=== PATIENT | female | born 1960 | race Caucasian/White ===

== ENCOUNTER 2019-07-14 10:11 | Emergency (ER) | payer OTHER ==
[~2019-07-14] VITALS: Ht 160 cm; Wt 82.1 kg
[2019-07-14 10:21] VITALS: BP_SYST 120
--- NOTE | 2019-07-14 10:27 | NUR ---
Patient to ER bed 5 to gown for evaluation. Side rails up. Report given to TABITHA Mart.
--- NOTE | 2019-07-14 10:30 | NUR ---
PT CAME TO ER WITH C/O LOWER BACK PAIN 04/01. WAS DIAGNOSED WITH KIDNEY STONES PREVIOUSLY AND PAIN HAS WORSENED
--- NOTE | 2019-07-14 10:45 | NUR ---
ER at bedside examining patient.
--- NOTE | 2019-07-14 11:00 | NUR ---
20 gauge angiocath placed to R AC. Use of asceptic technique. Opsite placed over site. Blood return noted. Blood for lab drawn from site. Flushed with 10 cc of normal saline. No evidence of infiltration noted. Patient tolerated well.
[2019-07-14 11:15] LABS: BILIRUBIN,URINE NEGATIVE (NEGATIVE); BLOOD, URINE 2+ (NEGATIVE); COLOR,URINE YELLOW (YELLOW); GLUCOSE,URINE NEGATIVE (NEGATIVE); KETONES,URINE NEGATIVE (NEGATIVE); LEUKOCYTE ESTERASE ,URINE NEGATIVE (NEGATIVE); NITRITE, URINE NEGATIVE (NEGATIVE); PROTEIN URINE NEGATIVE (NEGATIVE); UROBILINOGEN,URINE 0.2 (0.2-1.0)
[2019-07-14 11:21] LABS: CLARITY/URINE SLIGHTLY HAZY (CLEAR)
[2019-07-14 11:22] LABS: BASOPHILS % (AUTO) 0.6 % (0.0-2.0); EOSINOPHILS # (AUTO) 0.2 K/uL (0.0-0.4); EOSINOPHILS % (AUTO) 2.5 % (0.0-4.0); HEMATOCRIT 40.5 % (36-48); HEMOGLOBIN 13.4 g/dL (12.0-16.0); LYMPHOCYTES # (AUTO) 2.4 K/uL (1.0-5.5); LYMPHOCYTES % (AUTO) 27.7 % (20.5-51.5); MEAN CORPUSCULAR HEMOGLOBIN 29 pg (27-31); MEAN CORPUSCULAR HGB CONC 33 % (32-36); MEAN CORPUSCULAR VOLUME 89 fL (79.0-98.0); MONOCYTES # (AUTO) 0.6 K/uL (0.0-1.0); MONOCYTES % (AUTO) 7.4 % (1.7-9.3); NEUTROPHILS # (AUTO) 5.3 K/uL (1.8-7.7); NEUTROPHILS % (AUTO) 61.8 % (40.0-70.0); PLATELET COUNT (AUTO) 205 K/uL (130-430); RED BLOOD CELL COUNT(AUTO) 4.54 MIL/uL (4.2-6.2); RED CELL DISTRIBUTION WIDTH 14.2 % (9.0-15.0); WHITE BLOOD COUNT (AUTO) 8.6 K/uL (4.8-10.8)
[2019-07-14 11:28] LABS: BACTERIA,URINE FEW /HPF (None Seen); WBC,URINE 0-3 /HPF (0-3)
--- NOTE | 2019-07-14 11:33 | NUR ---
Patient transported to radiology via gurney, accompanied by needle grader.
[2019-07-14 11:43] LABS: CALCIUM 8.2 mg/dL (8.4-11.0); CREATININE 0.61 mg/dL (0.55-1.30); POTASSIUM 4.2 mmol/L (3.5-5.1)
[2019-07-14 11:48] LABS: ALBUMIN 3.7 g/dL (3.4-4.8); TOTAL BILIRUBIN 0.4 mg/dL (0.0-1.0)
[2019-07-14] MEDS ORDERED: ONDANSETRON HCL 4 MG/2 ML VIAL IVP ONE (13:00)
[2019-07-14] MEDS ORDERED: MORPHINE 4 MG/ML INJ. SYRINGE IVP ONE (13:00)
--- NOTE | 2019-07-14 13:33 | NUR ---
RESTING IN BED COMFORTABLY AFTER RECEIVING MEDICATION
[2019-07-14 13:59] VITALS: BP_SYST 128
--- NOTE | 2019-07-14 14:00 | NUR ---
Patient given written and verbal discharge instructions and verbalizes understanding. ER MD discussed with patient the results and treatment provided. Patient in stable condition. ID arm band removed. IV catheter removed intact and dressing applied, no active bleeding. Rx of [place] 5mg given. Patient educated on pain management and to follow up with PMD. Pain Scale 3/10. Opportunity for questions provided and answered. Medication side effect fact sheet provided.
== END 2019-07-14 14:00 | disposition home or self-care (01) ==
LOC: SED 10:11
DX: N20.0 Calculus of kidney (principal); N28.9 Disorder of kidney and ureter, unspecified; M54.5 Low back pain; J45.909 Unspecified asthma, uncomplicated
CPT/HCPCS: 36415; 74176; 80053; 81000; 83690; 85025; 96374; 96375; 99284; J2270; J2405

== ENCOUNTER 2021-11-01 12:52 | Emergency (ER) | payer OTHER ==
[~2021-11-01] VITALS: Ht 160 cm; Wt 81.6 kg
[2021-11-01 13:14] VITALS: BP_SYST 135
--- NOTE | 2021-11-01 13:20 | NUR ---
Pt. bib for head laceration about 2 cm. long, no active bleeding, pt. was grabbing vacuum and cord must have been tangles with cord from iron and iron fell off top of fridghe landing on pts. head, no LOC but has pain 8/10
--- NOTE | 2021-11-01 13:24 | NUR ---
ER examining patient in triage.
[2021-11-01] MEDS ORDERED: NAPR-690 PO (14:32)
[2021-11-01 14:39] VITALS: BP_SYST 135
--- NOTE | 2021-11-01 14:40 | NUR ---
Patient given written and verbal discharge instructions and verbalizes understanding. ER Dr. Doyle discussed with patient the results and treatment provided. Patient in stable condition. ID arm band removed. Patient educated on pain management and to follow up with PMD. Pain Scale 6. Opportunity for questions provided and answered.
== END 2021-11-01 14:39 | disposition home or self-care (01) ==
LOC: SED 12:52
DX: S09.8XXA Other specified injuries of head, initial encounter (principal); W22.8XXA Striking against or struck by other objects, initial encounter; Y93.89 Activity, other specified; Y92.89 Other specified places as the place of occurrence of the external cause; Y99.8 Other external cause status
CPT/HCPCS: 70450-TC; 76376; 99284

== ENCOUNTER 2022-03-20 14:29 | Emergency (ER) | payer OTHER ==
[~2022-03-20] VITALS: Ht 160 cm; Wt 81.6 kg
[~2022-03-20 14:29] MED LIST: NAPR-690 PO
[2022-03-20 14:47] VITALS: BP_SYST 154
--- NOTE | 2022-03-20 15:01 | NUR ---
Patient to ER bed H3 to gown for evaluation. Side rails up.
--- NOTE | 2022-03-20 15:17 | NUR ---
PT presents to the ER bib daughter CC neck pain. Pt notes left posterior neck pain radiates to top of head 10/10 pain scale. Pt describes intermittant throbbing pressure. Pt states " I am under a lot of stress" pt is sitting with tears in her eyes and mumbling complete sentences.
[2022-03-20 16:00] LABS: BASOPHILS # (AUTO) 0.1 K/uL (0.0-0.2); BASOPHILS % (AUTO) 0.7 % (0.0-2.0); EOSINOPHILS # (AUTO) 0.2 K/uL (0.0-0.4); EOSINOPHILS % (AUTO) 2.5 % (0.0-4.0); HEMATOCRIT 41.9 % (36-48); LYMPHOCYTES # (AUTO) 3.2 K/uL (1.0-5.5); LYMPHOCYTES % (AUTO) 36.2 % (20.5-51.5); MEAN CORPUSCULAR VOLUME 86 fL (79.0-98.0); MONOCYTES # (AUTO) 0.5 K/uL (0.0-1.0); MONOCYTES % (AUTO) 5.9 % (1.7-9.3); NEUTROPHILS # (AUTO) 4.9 K/uL (1.8-7.7); NEUTROPHILS % (AUTO) 54.7 % (40.0-70.0); PLATELET COUNT (AUTO) 243 K/uL (130-430); RED BLOOD CELL COUNT(AUTO) 4.89 MIL/uL (4.2-6.2); RED CELL DISTRIBUTION WIDTH 14.1 % (9.0-15.0); WHITE BLOOD COUNT (AUTO) 8.9 K/uL (4.8-10.8)
[2022-03-20] MEDS ORDERED: HYDROcodone/ACETAMIN 10-325 MG TAB PO ONE (16:00)
[2022-03-20] MEDS ORDERED: KETOROLAC TROMETHAMINE 60 MG/2 ML VIAL IM ONE (16:00)
--- NOTE | 2022-03-20 16:08 | NUR ---
PT on right side resting without complaint.
[2022-03-20 16:29] LABS: CALCIUM 9.1 mg/dL (8.4-11.0); CREATININE 0.73 mg/dL (0.55-1.30); POTASSIUM 4.3 mmol/L (3.5-5.1)
[2022-03-20 16:36] LABS: ALBUMIN 3.4 g/dL (3.4-4.8); C-REACTIVE PROTEIN QUANT 0.8 mg/dL (0-0.5); TOTAL BILIRUBIN 0.4 mg/dL (0.0-1.0)
[2022-03-20] MEDS ORDERED: HYDR-3917 PO (17:55)
[2022-03-20] MEDS ORDERED: IBUP-1969 PO (17:55)
--- NOTE | 2022-03-20 18:03 | NUR ---
Patient given written and verbal discharge instructions and verbalizes understanding. ER MD discussed with patient the results and treatment provided. Patient in stable condition. ID arm band removed. Rx of Ibuprofen and [place] given. Patient educated on pain management and to follow up with PMD. Opportunity for questions provided and answered. Medication side effect fact sheet provided.
[2022-03-20 18:04] VITALS: BP_SYST 120
[2022-03-20 20:42] LABS: ERYTHROCYTE SEDIMENTATION RATE 10 MM/HR (0-20)
== END 2022-03-20 18:04 | disposition home or self-care (01) ==
LOC: SED 14:29
DX: R51.9 Headache, unspecified (principal); R11.0 Nausea; J45.909 Unspecified asthma, uncomplicated; Z79.899 Other long term (current) drug therapy
CPT/HCPCS: 99284; 70450; 80053; 85025; 85651; 86140; 36415; 76376; 96372; J1885